=== PATIENT | male | born 1950 | race Caucasian/White ===

== ENCOUNTER → 2017-02-02 | Outpatient (CLI) | payer OTHER | LOC: LAB 08:15 | PROVIDERS: Internal Medicine Nephrology | DX: N18.2 Chronic kidney disease, stage 2 (mild) (principal) | CPT/HCPCS: 36415; 80053; 82043; 82570 ==

== ENCOUNTER → 2021-02-16 | Outpatient (CLI) | payer OTHER | LOC: LAB 09:09 | PROVIDERS: Internal Medicine Nephrology | DX: N18.2 Chronic kidney disease, stage 2 (mild) (principal) | CPT/HCPCS: 36415; 80053; 82570; 84156 ==

== ENCOUNTER → 2021-05-19 | Outpatient (CLI) | payer OTHER ==
[~2021-05-19] MED LIST: ASPIRIN EC81 MG PO; ATORVASTATIN CA80 MG PO; CATAPRES 0.1MG0.1 MG PO; HYDRALAZINE HC100 MG PO; LANTUS SOL100 UNIT/1 SC; NORVASC5 MG PO; SYNTHROID 150150 MCG PO; TOPROL XL100 MG PO; ZESTRIL 40 MG T40 MG PO
== END ==
LOC: LAB 09:14
PROVIDERS: Internal Medicine Nephrology
DX: N18.2 Chronic kidney disease, stage 2 (mild) (principal)
CPT/HCPCS: 36415; 80053; 81001; 82570; 84156

== ENCOUNTER 2021-06-16 01:55 | Emergency (ER) | payer OTHER ==
[~2021-06-16] VITALS: Ht 172.7 cm; Wt 68.0 kg
[2021-06-16 03:04] LABS: HEMOGLOBIN 14.2 gm/dl (14.0-17.5); RED BLOOD COUNT 4.54 M/UL (4.20-5.50); WHITE BLOOD COUNT 12.5 K/UL (4.5-11.0)
[2021-06-16] MEDS ORDERED: NORVASC5 MG PO (16:18)
[2021-06-16] MEDS ORDERED: HYDRALAZINE HC100 MG PO (16:18)
[2021-06-16] MEDS ORDERED: SYNTHROID 150150 MCG PO (16:18)
[2021-06-16] MEDS ORDERED: CATAPRES 0.1MG0.1 MG PO (16:19)
[2021-06-16] MEDS ORDERED: ATORVASTATIN CA80 MG PO (16:19)
[2021-06-16] MEDS ORDERED: TOPROL XL100 MG PO (16:19)
[2021-06-16] MEDS ORDERED: LANTUS SOL100 UNIT/1 SC (16:20)
[2021-06-16] MEDS ORDERED: ZESTRIL 40 MG T40 MG PO (16:20)
[2021-06-16] MEDS ORDERED: ASPIRIN EC81 MG PO (16:36)
== END 2021-06-16 18:00 | disposition home or self-care (01) ==
LOC: ER1 01:55 → CDU 08:23 → ER1 08:23 → CDU 18:00 → ER1 18:00
PROVIDERS: Physician Assistant
DX: R00.2 Palpitations (principal); R53.1 Weakness; R77.8 Other specified abnormalities of plasma proteins; I12.9 Hypertensive chronic kidney disease with stage 1 through stage 4 chronic kidney disease, or unspecified chronic kidney disease; E11.22 Type 2 diabetes mellitus with diabetic chronic kidney disease; N18.2 Chronic kidney disease, stage 2 (mild); E03.9 Hypothyroidism, unspecified; Z20.822 Contact with and (suspected) exposure to COVID-19; I25.2 Old myocardial infarction; Z95.1 Presence of aortocoronary bypass graft; Z90.49 Acquired absence of other specified parts of digestive tract
CPT/HCPCS: 71045; 80053; 82550; 82553; 82962; 83735; 83874; 83880; 84439; 84443; 84484; 85025; 93005; 99285; G0378; U0002

== ENCOUNTER → 2021-09-14 | Outpatient (CLI) | payer OTHER ==
[2021-09-14 10:52] LABS: BUN/CREATININE RATIO 15 (0-10)
== END ==
LOC: LAB 10:08
PROVIDERS: Internal Medicine Nephrology
DX: N18.2 Chronic kidney disease, stage 2 (mild) (principal)
CPT/HCPCS: 36415; 80053; 82570; 84156

== ENCOUNTER → 2021-11-16 | Outpatient (CLI) | payer OTHER ==
[2021-11-17 08:16] LABS: A/G RATIO 1.9 (1.2-2.2); BILIRUBIN, TOTAL 1.2 mg/dL (0.0-1.2); CALCIUM, SERUM 9.2 mg/dL (8.6-10.2); CREATININE, SERUM 1.31 mg/dL (0.76-1.27); GLOBULIN, TOTAL 2.1 g/dL (1.5-4.5); MAGNESIUM 2.2 mg/dL (1.6-2.3); POTASSIUM, SERUM 4.8 mmol/L (3.5-5.2)
[2021-11-17 09:15] LABS: VITAMIN D, 25-HYDROXY 37.5 ng/mL (30.0-100.0)
== END ==
LOC: LAB 09:20
PROVIDERS: Internal Medicine Nephrology
DX: E87.5 Hyperkalemia (principal); E83.51 Hypocalcemia; N18.2 Chronic kidney disease, stage 2 (mild)
CPT/HCPCS: 36415; 80053; 82570; 83735; 83970; 84100; 84156

== ENCOUNTER → 2021-11-17 | Outpatient (CLI) | payer OTHER | LOC: EXRD 13:09 | DX: N18.2 Chronic kidney disease, stage 2 (mild) (principal) | CPT/HCPCS: 76775 ==

== ENCOUNTER 2021-12-29 02:17 | Emergency (ER) | payer OTHER ==
[2021-12-29 02:41] LABS: HEMOGLOBIN 13.5 gm/dl (14.0-17.5); RED BLOOD COUNT 4.34 M/UL (4.20-5.50); WHITE BLOOD COUNT 4.3 K/UL (4.5-11.0)
[2021-12-29] MEDS ORDERED: OMNICEF 300 MG300 MG PO (05:37)
[2021-12-29] MEDS ORDERED: DOXYCYCLINE HY100 MG PO (05:37)
[2021-12-29] MEDS ORDERED: ZOFRAN ODT 4 MG4 MG PO (05:37)
== END 2021-12-29 06:35 | disposition home or self-care (01) ==
LOC: ER1 02:17
PROVIDERS: Family Medicine
DX: J18.9 Pneumonia, unspecified organism (principal); E78.5 Hyperlipidemia, unspecified; Z20.822 Contact with and (suspected) exposure to COVID-19; E11.9 Type 2 diabetes mellitus without complications; Z79.4 Long term (current) use of insulin; I10 Essential (primary) hypertension; E03.9 Hypothyroidism, unspecified; Z79.899 Other long term (current) drug therapy
CPT/HCPCS: 0240U; 36600; 71045; 80053; 81001; 82550; 82553; 82803; 83605; 83735; 83880; 84100; 84484; 85025; 85610; 86140; 87040; 87086; 96374; 96375; 99284; J0696; J2405

== ENCOUNTER → 2022-03-09 | Outpatient (CLI) | payer OTHER ==
[~2022-03-09] MED LIST changes: +DOXYCYCLINE HY100 MG PO; +OMNICEF 300 MG300 MG PO; +ZOFRAN ODT 4 MG4 MG PO
== END ==
LOC: LAB 08:55
PROVIDERS: Internal Medicine Nephrology
DX: N18.2 Chronic kidney disease, stage 2 (mild) (principal)
CPT/HCPCS: 36415; 80048

== ENCOUNTER → 2022-06-06 | Outpatient (CLI) | payer OTHER | LOC: LAB 08:03 | PROVIDERS: Internal Medicine Nephrology | DX: N18.2 Chronic kidney disease, stage 2 (mild) (principal); E83.51 Hypocalcemia | CPT/HCPCS: 36415; 80053; 82570; 83970; 84156 ==